=== PATIENT | female | born 2000 | race Two or more races ===

== ENCOUNTER 2021-05-22 14:58 | Outpatient (CLI) | payer OTHER | END 2021-05-22 15:58 | disposition home or self-care (01) | LOC: PRENATAL 14:58 | PROVIDERS: ATTEND Obstetrics & Gynecology Maternal & Fetal Medicine | DX: O35.0XX1 Maternal care for (suspected) central nervous system malformation in fetus, fetus 1 (principal); O35.3XX1 Maternal care for (suspected) damage to fetus from viral disease in mother, fetus 1; O98.512 Other viral diseases complicating pregnancy, second trimester; Z36.89 Encounter for other specified antenatal screening; Z3A.24 24 weeks gestation of pregnancy ==

== ENCOUNTER 2021-08-20 10:37 | Outpatient (CLI) | payer OTHER | END 2021-08-20 12:05 | disposition home or self-care (01) | LOC: PRENATAL 10:37 | PROVIDERS: ATTEND Obstetrics & Gynecology Maternal & Fetal Medicine | DX: O36.8199 Decreased fetal movements, unspecified trimester, other fetus (principal); O26.849 Uterine size-date discrepancy, unspecified trimester; O35.0XX0 Maternal care for (suspected) central nervous system malformation in fetus, not applicable or unspecified ==

== ENCOUNTER 2021-08-23 20:40 | Emergency (ER) | payer OTHER ==
[~2021-08-23] VITALS: Ht 157.5 cm; Wt 77.6 kg
[2021-08-23] MEDS ORDERED: PRENATAL FORMU1 EAC2 PO (21:11)
== END 2021-08-23 23:55 | disposition home or self-care (01) ==
LOC: ER 20:40
DX: S93.401A Sprain of unspecified ligament of right ankle, initial encounter (principal); W18.30XA Fall on same level, unspecified, initial encounter; Y93.89 Activity, other specified; Y92.488 Other paved roadways as the place of occurrence of the external cause

== ENCOUNTER 2024-07-26 07:05 | Emergency (ER) | payer OTHER ==
[~2024-07-26] VITALS: Ht 157.5 cm; Wt 54.4 kg
[~2024-07-26 07:05] MED LIST: PRENATAL FORMU1 EAC2 PO
[2024-07-26 07:17] VITALS: BP 114/76; O2SAT 100
[2024-07-26] MEDS ORDERED: BARIUM SULFATE 450 ML ORAL.SUSP PO ONE (08:53)
[2024-07-26 09:32] LABS: MEAN CELL VOLUME 72.4 fL (80.00-100.00); MEAN CORPUSCULAR HEMOGLOBIN 23.4 pg (27.00-32.0); MEAN CORPUSCULAR HGB CONC 32.3 g/dl (32.0-36.0); PLATELET COUNT 386 K/uL (150-450); RED BLOOD COUNT 5.11 M/uL (4.00-6.00); RED CELL DISTRIBUTION WIDTH 16.5 % (11.5-14.5)
[2024-07-26 10:44] LABS: PH,URINE 6.5 (5.0-8.0); URINE APPEARANCE Clear; URINE BILIRRUBIN Negative (NEGATIVE); URINE BLOOD Negative; URINE COLOR Yellow; URINE GLUCOSE Negative (NEGATIVE); URINE KETONE Negative (NEGATIVE); URINE LEUKOCYTE Negative; URINE NITRATE Negative; URINE PROTEIN Negative (NEGATIVE); URINE UROBILINOGEN 0.2 E.U./dl
[2024-07-26 10:48] LABS: URINE BACTERIA 53.8 uL (0.0-1933); URINE EPITHELIAL CELLS 5.3 uL (0.0-38.8)
[2024-07-26 10:52] LABS: URINE RBC 0.8 uL (0.0-20.8); URINE WBC 1.4 uL (0.0-23.2)
== END 2024-07-26 15:51 | disposition home or self-care (01) ==
LOC: ER 07:08
PROVIDERS: Emergency Medicine
DX: K59.00 Constipation, unspecified (principal); R10.2 Pelvic and perineal pain
CPT/HCPCS: 36415; 74177; Q9965